=== PATIENT | male | born 1965 | race Caucasian/White ===

== ENCOUNTER 2016-12-24 18:34 | Emergency (ER) | payer OTHER ==
[2016-12-24 18:41] VITALS: RESP 16
[2016-12-24 19:14] LABS: COLOR YELLOW; LEUKOCYTE ESTERASE,URINE NEGATIVE (NEGATIVE); NITRITE,URINE NEGATIVE (NEGATIVE)
[2016-12-24 19:17] LABS: BACTERIA TRACE /hpf (NONE SEEN); MUCUS TRACE /lpf (NONE-1+)
[2016-12-24 19:20] LABS: % IMMATURE GRANULYOCYTES 0.3 % (0.0-1.1); ABSOLUTE IMMATURE GRANULOCYTES 0.03 10^3/uL (0.00-0.10); ADD DIFF? NO; ADD MORPH? NO; ADD SCAN? NO; ATYPICAL LYMPHOCYTE FLAG 0 (0-99); FRAGMENT RBC FLAG 0 (0-99); HEMATOCRIT 48.6 % (40.0-51.0); HEMOGLOBIN 16.6 g/dL (13.7-17.5); LEFT SHIFT FLG 0 (0-99); LIPEMIA HEMOLYSIS FLAG 90 (0-99); MEAN CELL HEMOGLOBIN 28.9 pg (27.9-34.1); MEAN CELL HEMOGLOBIN CONCENTR. 34.2 g/dL (32.4-36.7); MEAN CELL VOLUME 84.7 fL (81.5-99.8); MEAN PLATELET VOLUME 9.8 fL (8.7-11.7); PLATELET CLUMPS FLAG 0 (0-99); PLATELET COUNT 272 10^3/uL (150-400); RED BLOOD CELL COUNT 5.74 10^6/uL (4.40-6.38); RED CELL DISTRIBUTION WIDTH 12.5 % (11.5-15.2)
[2016-12-24 19:51] LABS: ALANINE AMINOTRANSFERASE 38 IU/L (21-72); ALBUMIN 5.1 g/dL (3.5-5.0); ALKALINE PHOSPHATASE 58 IU/L (38-126); ANION GAP 12 mEq/L (8-16); ASPARTATE AMINOTRANSFERASE 28 IU/L (17-59); BILIRUBIN,TOTAL 0.9 mg/dL (0.1-1.4); BILIRUBIN-CONJUGATED 0.4 mg/dL (0.0-0.5); BILIRUBIN-UNCONJUGATED 0.5 mg/dL (0.0-1.1); CALCIUM 9.9 mg/dL (8.5-10.4); CARBON DIOXIDE 26 mEq/l (22-31); CHLORIDE 100 mEq/L (97-110); CREATININE 0.9 mg/dL (0.7-1.3); GLOMERULAR FILTRATION RATE > 60; GLUCOSE 83 mg/dL (70-100); POTASSIUM 4.1 mEq/L (3.5-5.2); SODIUM 138 mEq/L (134-144); TOTAL PROTEIN 7.7 g/dL (6.3-8.2)
[2016-12-24] MEDS ORDERED: IOPAMIDOL (ISOVUE-300) 100 ML BTL IV ONE (19:57)
--- NOTE | 2016-12-24 20:27 | EDPHY ---
H & P Time Seen by Provider: 12/24/16 18:43 HPI/ROS: CHIEF COMPLAINT: Abdominal pain HISTORY OF PRESENT ILLNESS: 51-year-old male presents to the emergency department with right-sided abdominal pain. Pain began yesterday morning and the pain became worse this afternoon after eating. No vomiting or diarrhea. No fevers or chills. No chest pain or difficulty breathing. No flank pain. No pain radiating into his testicles. No urinary symptoms. No reported trauma. REVIEW OF SYSTEMS: Constitutional: No fever, no chills. Eyes: No double or blurry vision. ENT: No sore throat. Respiratory: No cough, no shortness of breath. Cardiac: No chest pain. Gastrointestinal: Abdominal pain. No vomiting or diarrhea Genitourinary: No dysuria. Musculoskeletal: No neck or back pain. Skin: No rashes. Neurological: No headache. Past Medical/Surgical History: Negative Social History: Smoking Status: Current every day smoker Physical Exam: General Appearance: Alert, no distress. Temperature 36.5. No apparent distress. Eyes: Pupils equal and round. Extraocular motions are all intact. ENT: Mouth: Mucous membranes moist. Respiratory: No wheezing, rhonchi, or rales, lungs are clear to auscultation. Cardiovascular: Regular rate and rhythm. Gastrointestinal: Abdomen is soft. Tenderness with palpation in the right upper quadrant. There is no rebound, guarding or masses noted. No CVA tenderness bilaterally. Neurological: Alert and oriented x 3, cranial nerves II through XII grossly intact Skin: Warm and dry, no rashes. Musculoskeletal: Nontender to palpate along the cervical, thoracic or lumbar spine. Neck is supple. Extremities: Full range of motion and no peripheral edema. Psychiatric: Patient is oriented X 3, there is no agitation. Constitutional: Initial Vital Signs Temperature (C) 36.5 C 12/24/16 18:38 Heart Rate 68 12/24/16 18:38 Respiratory Rate 16 12/24/16 18:38 Blood Pressure 153/79 H 12/24/16 18:38 O2 Sat (%) 96 12/24/16 18:38 O2 Delivery Mode Room Air Allergies/Adverse Reactions: lactose Allergy (Verified 12/24/16 18:37) immodium Allergy (Uncoded 12/24/16 18:37) Home Medications: Medication Instructions Recorded Ambien 12/24/16 Viagra 12/24/16 Medical Decision Making - Diagnostics Imaging Results: Imaging Impressions Abdomen CT 12/24/16 19:52 Impression: 1. Normal appendix. 2. Diverticulosis. No acute diverticulitis. 3. Mild degenerative disk disease in the upper lumbar spine. Findings discussed with Emergency Department physician, Gini Rice PA-C on December 24, 2016 at 2029 hours. ED Course/Re-evaluation: 51-year-old male presents to the emergency department with right-sided abdominal pain. The patient has normal liver function tests. I doubt this patient has gallbladder disease. CT scan of the abdomen and pelvis was recommended. I discussed the pros and cons of CT imaging including radiation exposure the patient agrees. CT imaging reveals a normal appearing appendix. Patient will be discharged home. He was instructed to have close follow-up with his primary care provider. No peritoneal signs on examination. Differential Diagnosis: Including but not limited to urinary tract infection, pyelonephritis, acute appendicitis, kidney stones, diverticulosis, diverticulitis, colitis, constipation, kidney stone, cholecystitis, cholelithiasis - Data Points Laboratory Results: Laboratory Results 12/24/16 19:05 12/24/16 19:05 12/24/16 12/24/16 12/24/16 19:05 19:05 18:55 WBC 10.71 10^3/uL H 10^3/uL (3.80-9.50) RBC 5.74 10^6/uL 10^6/uL (4.40-6.38) Hgb 16.6 g/dL g/dL (13.7-17.5) Hct 48.6 % % (40.0-51.0) MCV 84.7 fL fL (81.5-99.8) MCH 28.9 pg pg (27.9-34.1) MCHC 34.2 g/dL g/dL (32.4-36.7) RDW 12.5 % % (11.5-15.2) Plt Count 272 10^3/uL 10^3/uL (150-400) MPV 9.8 fL fL (8.7-11.7) Neut % (Auto) 71.7 % % (39.3-74.2) Lymph % (Auto) 19.1 % % (15.0-45.0) [place] % (Auto) 7.2 % % (4.5-13.0) Eos % (Auto) 1.1 % % (0.6-7.6) Baso % (Auto) 0.6 % % (0.3-1.7) Nucleat RBC Rel Count 0.0 % % (0.0-0.2) Absolute Neuts (auto) 7.68 10^3/uL H 10^3/uL (1.70-6.50) Absolute Lymphs (auto) 2.05 10^3/uL 10^3/uL (1.00-3.00) Absolute Monos (auto) 0.77 10^3/uL 10^3/uL (0.30-0.80) Absolute Eos (auto) 0.12 10^3/uL 10^3/uL (0.03-0.40) Absolute Basos (auto) 0.06 10^3/uL 10^3/uL (0.02-0.10) Absolute Nucleated RBC 0.00 10^3/uL 10^3/uL (0-0.01) Immature Gran % 0.3 % % (0.0-1.1) Immature Gran # 0.03 10^3/uL 10^3/uL (0.00-0.10) Sodium 138 mEq/L mEq/L (134-144) Potassium 4.1 mEq/L mEq/L (3.5-5.2) Chloride 100 mEq/L mEq/L (97-110) Carbon Dioxide 26 mEq/l mEq/l (22-31) Anion Gap 12 mEq/L mEq/L (8-16) BUN 15 mg/dL mg/dL (7-23) Creatinine 0.9 mg/dL mg/dL (0.7-1.3) Estimated GFR > 60 Glucose 83 mg/dL mg/dL (70-100) Calcium 9.9 mg/dL mg/dL (8.5-10.4) Total Bilirubin 0.9 mg/dL mg/dL (0.1-1.4) Conjugated Bilirubin 0.4 mg/dL mg/dL (0.0-0.5) Unconjugated Bilirubin 0.5 mg/dL mg/dL (0.0-1.1) AST 28 IU/L IU/L (17-59) ALT 38 IU/L IU/L (21-72) Alkaline Phosphatase 58 IU/L IU/L (38-126) Total Protein 7.7 g/dL g/dL (6.3-8.2) Albumin 5.1 g/dL H g/dL (3.5-5.0) Lipase 33.0 IU/L IU/L (23-300) Urine Color YELLOW Urine Appearance HAZY Urine pH 5.0 (5.0-7.5) Ur Specific [place] 1.015 (1.002-1.030) Urine Protein NEGATIVE (NEGATIVE) Urine Ketones 1+ H (NEGATIVE) Urine Blood NEGATIVE (NEGATIVE) Urine Nitrate NEGATIVE (NEGATIVE) Urine Bilirubin NEGATIVE (NEGATIVE) Urine Urobilinogen NEGATIVE EU EU (0.2-1.0) Ur Leukocyte Esterase NEGATIVE (NEGATIVE) Urine RBC 1-3 /hpf /hpf (0-3) Urine WBC 1-3 /hpf /hpf (0-3) Ur Epithelial Cells NONE SEEN /lpf /lpf (NONE-1+) Urine Bacteria TRACE /hpf H /hpf (NONE SEEN) Urine Mucus TRACE /lpf /lpf (NONE-1+) Urine Sperm PRESENT /hpf /hpf (NONE SEEN) Urine Glucose NEGATIVE (NEGATIVE) Departure - Departure Disposition: Home, Routine, Self-Care Clinical Impression: Abdominal pain, Diverticulosis Condition: Good Instructions: Diverticulosis (ED), Acute Abdominal Pain (ED) Additional Instructions: Abdominal Pain: Return to the Emergency Department immediately for increasing pain, fever, vomiting, or if not completely better in 8-12 hours. Drink plenty of water. Go for walks to help move your bowels. You may try things that might help bulk your stool such as Benefiber or MiraLax [id number]. You may also try magnesium citrate if you become constipated. Referrals: Boaz Montoya MD [Primary Care Provider] - 1-2 days without fail
[2016-12-24 21:01] VITALS: BP 146/98; PULSE 76; TEMP 98.1; O2SAT 98
== END 2016-12-24 21:01 | disposition home or self-care (01) ==
DX: K57.90 Diverticulosis of intestine, part unspecified, without perforation or abscess without bleeding (principal); F17.200 Nicotine dependence, unspecified, uncomplicated
CPT/HCPCS: Q9967

== ENCOUNTER 2018-08-09 12:12 | Emergency (ER) | payer BC ==
[2018-08-09] MEDS ORDERED: TDAP ADULT 0.5 ML INJ (BOOSTRIX) IM ONE (12:53)
--- NOTE | 2018-08-09 12:53 | EDPHY ---
General Time Seen by Provider: 08/09/18 12:45 Narrative: CHIEF COMPLAINT: Cut my thumb HISTORY OF PRESENT ILLNESS: Patient presents to emergency depart with complaints of cutting his left thumb accidentally. He states that he was cutting/stripping wire within the past 2 hr when he accidentally cut his left thumb with a knife. Moderately painful that has improved. No difficulty been or straightening the finger. He had moderate bleeding that stopped with pressure. No numbness or tingling or weakness. No injury elsewhere. No other associated complaints or modifying factors. TIME OF INJURY: Less than 2 hr prior to arrival TETANUS STATUS: Uncertain MEDICAL/SURGICAL/SOCIAL HISTORY: Lactose intolerance. Right-hand dominant. REVIEW OF SYSTEMS: Ten systems reviewed and are negative unless otherwise noted in the HPI EXAMINATION: Vitals: Triage VS reviewed General Appearance: Alert, no distress Head: normocephalic, atraumatic Cardiovascular: Symmetric radial pulses. Brisk cap refill the left thumb. Neurological: A&O, light and 2 point sensory symmetric, research instructor, interossei and oppositional strength symmetric Skin: Warm and dry, no rash. Left Thumb laceration measuring over the palmar and radial side of the left thumb proximal phalanx. Neuro intact distally. No foreign body pulsatile bleeding. Extremities: Tenderness in left thumb laceration. Full range of motion of the hand symmetrically. DIFFERENTIAL DIAGNOSES: Including but not limited to laceration, laceration complication, laceration foreign body, laceration with deep tissue injury MDM: 12:35 p.m. Laceration to the left thumb overlying the the palm over/radial side of the proximal phalanx of the thumb. Neuro intact distally. No evidence of tendon injury. Tetanus will need to be updated here. I have anesthetize the thumb. Proceed with irrigation re-evaluation. 1:30 p.m. Laceration of thumb that has been repaired without difficulty. Neuro intact pre and postprocedure with full range of motion of the thumb. We discuss signs and symptoms of watch for infection. We discussed short course of finger splint. We discussed returning here in 7-10 days for suture removal. Discharged stable condition. PROCEDURE: Laceration repair Consent: Verbal Location: Left thumb Length of repair: 2 cm Complexity: Simple Layer involvement: Anesthesia: Digital block Irrigation: Extensive Debridement: None Procedure description: Following good anesthesia, the wound was copiously irrigated. Wound bed was explored with a sterile glove, and there is no foreign body noted. No tendon injury. Wound borders were approximated well with good hemostasis. Tolerated well without complication. Suture/Staple material: 4-0 Prolene, 4 simple ruptured sutures Wound care: Routine as discussed Suture/Staple removal: 7-10 Days PROCEDURE: Digital Block Indication: Finger laceration Consent: Verbal Location: Left thumb Anesthesia: Lidocaine 1% plain, 0.25% Marcaine plain, 5mL Description: Base of the finger was prepped. The above was infused without difficulty in a ring block fashion. Tolerated well. Good anesthesia. Complications: None SUPERVISION: This patient was independently evaluated without direct involvement of or examination by the attending physician. ED Precautions: Worsening pain. Erythema, edema, cyanosis, pallor, paresthesia or anesthesia. - History Smoking Status: Never smoked - Objective Vital Signs: Initial Vital Signs Temperature (C) 97.5 F 08/09/18 12:17 Heart Rate 73 08/09/18 12:17 Respiratory Rate 18 08/09/18 12:17 Blood Pressure 149/89 H 08/09/18 12:17 O2 Sat (%) 97 08/09/18 12:17 O2 Delivery Mode Room Air Allergies/Adverse Reactions: lactose Allergy (Verified 08/09/18 12:16) immodium Allergy (Uncoded 12/24/16 18:37) Home Medications: Medication Instructions Recorded Ambien 12/24/16 Viagra 12/24/16 Medications Given: Discontinued Medications Diphtheria/Tetanus/Acell Pertussis (Boostrix) 0.5 ml IM .ONCE ONE Stop: 08/09/18 12:54 Last Admin: 08/09/18 12:57 Dose: 0.5 ml Departure - Departure Disposition: Home, Routine, Self-Care Clinical Impression: Laceration of thumb Qualifiers: Encounter type: initial encounter Damage to nail status: without damage Foreign body presence: without foreign body Laterality: left Qualified Code(s): S61.012A - Laceration without foreign body of left thumb without damage to nail , initial encounter Condition: Good Instructions: Laceration (ED), Care For Your Stitches (ED) Additional Instructions: 1. Use finger splint for the next 3 days 2. Keep the wound covered while showering for the next 3 days 3. Daily wound care as discussed 4. Return here for suture removal in 7-10 days 5. Return here for signs of infection as discussed including warmth, redness, fever, drainage from the site 6. return here for increasing pain surrounding the laceration 7. Do not submerge the wound in any water, hot tub, swimming pool until sutures removed Referrals: Physician,Emergency Dept, [Medical Doctor] - As per Instructions (7-10 days suture removal) Kevon Senior MD [Medical Doctor] - As per Instructions
[2018-08-09 14:04] VITALS: BP 149/93
== END 2018-08-09 14:03 | disposition home or self-care (01) ==
PROC: 0HQGXZZ Repair Left Hand Skin, External Approach (ICD-10-PCS; principal; 2018-08-09)
DX: S61.012A Laceration without foreign body of left thumb without damage to nail, initial encounter (principal); W26.0XXA Contact with knife, initial encounter; Y92.9 Unspecified place or not applicable; Y93.9 Activity, unspecified; Y99.9 Unspecified external cause status; Z23 Encounter for immunization